=== PATIENT | male | born 1960 | race Caucasian/White ===

== ENCOUNTER 2018-03-29 09:12 | Inpatient (IN) ==
--- NOTE | 2018-03-29 09:24 | Emergency Department Report ---
Altered Mental Status HPI - General Chief Complaint: Altered Mental Status Stated Complaint: Confusion, falling, incontinence Time Seen by Provider: 03/29/18 09:22 Source: patient, family Mode of arrival: ambulatory Limitations: no limitations - History of Present Illness HPI narrative: Patient is a 57-year-old male presents emergency room for evaluation of confusion, falling. Patient in usual state of good health, last night was working on the computer about midnight, which is not uncommon for him. was woke up by a very large thump. Patient was had with fall and office chair in the computer room, unknown if he has had. Since that time patient's been having increasing confusion, patient has fallen 4 times since then. Patient becoming more confused and altered so brought patient to the ER for evaluation on arrival patient is tachycardic, appears to be agitated will answer questions appropriately, however does have some component of confusion. Review with the patient does have a history of seizures last seizure 8 years ago started on Keppra. Patient also has ADHD has been taking Adderall, did give a double dose this morning - Related Data Home Medications Medication Instructions Recorded Confirmed Cholecalciferol [Vit. D-3] 1,000 unit PO DAILY #30 tab 12/07/15 03/29/18 Previous Rx's Medication Instructions Recorded ondansetron HCl 4 mg tablet 4 mg PO Q4-6HPRN PRN #30 tab 12/20/17 trazodone 50 mg tablet 50 mg PO HS PRN #30 tab 01/14/18 Protonix (Pantoprazole)40 mg 40 mg PO QAM #30 tab 02/11/18 tablet,delayed release Actos (pioglitazone) 45 mg tablet 45 mg PO DAILY #90 tab 02/18/18 Glucophage (metformin) 1,000 mg 1,000 mg PO BID #60 tab 03/04/18 tablet Proscar (finasteride) 5 mg tablet 5 mg PO DAILY #30 tab 03/04/18 dapagliflozin 10 mg tablet 10 mg PO DAILY #30 tab 03/04/18 triazolam 0.25 mg tablet 0.25 mg PO HS PRN #30 tab 03/04/18 Xanax (alprazolam) 0.5 mg tablet 0.5 mg PO TID PRN #30 tab 03/06/18 dextroamphetamine-amphetamine 20 1 tab PO BID #60 tab 03/19/18 mg tablet Allergies Allergy/AdvReac Type Severity Reaction Status Date / Time citalopram [From Celexa] Allergy Intermediate Inability Verified 03/29/18 10:19 to ejaculate Review of Systems Constitutional: Denies: fever, chills, weakness Eyes: Denies: eye pain, eye discharge ENT: Denies: throat pain, dental pain Cardiovascular: Denies: chest pain, palpitations, dyspnea on exertion Respiratory: Denies: cough, dyspnea, wheezes Gastrointestinal: Denies: abdominal pain, nausea, vomiting Integumentary: Denies: alopecia, change in hair Neurological: Denies: headache, numbness Psychiatric: Reports: anxiety, other (agitation) Endocrine: Denies: fatigue [facility] Medical History Diabetes (Chronic Medical) Cataract (Chronic Medical) GERD (gastroesophageal reflux disease) (Chronic Medical) Generalized anxiety disorder (Chronic Medical) Follows with [facility] Sleep apnea (Chronic Medical ~2002) No CPAP - had lost 60 pounds since diagnosis Benign prostatic hyperplasia (Chronic Medical) BPH (benign prostatic hyperplasia) (Chronic Medical) Depression (Chronic Medical) Diabetes mellitus (Chronic Medical) Hypercholesteremia (Chronic Medical) Depression (Resolved Medical ~2000) Medical History Updates: ADHD. Seizure Surgical History: * Left cataract excision - 2014. * Colonoscopy - ~[address] Renny Vance. Reportedly normal. 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 Absent: tenderness - Chest Chest inspection: Present: normal inspection, symmetric chest wall rise. Absent : tenderness - Respiratory Respiratory exam: Present: normal lung sounds bilaterally. Absent: respiratory distress, wheezes, stridor - Cardiovascular Cardiovascular exam: Present: normal rhythm, tachycardia, normal heart sounds. Absent: regular rate - Abdominal Exam Abdominal exam: Present: soft, normal bowel sounds. Absent: distention, tenderness - Expanded Neurological Exam Patient oriented to: Present: person Cranial nerves: Normal: EOM function (II, III, IV, ), facial sensation (V), facial palsy (VII), gag reflex (IX), spinal accessory function (XI), tongue deviation (XII) Motor strength - LUE: 5/5 Motor strength - RUE: 5/5 Motor strength - LLE: 5/5 Motor strength - RLE: 5/5 Sensory exam upper extremity: Normal: light touch Sensory exam lower extremity: Normal: light touch DTR: 2+: biceps (L), biceps (R), patellar (L), patellar (R) Coma scale eye opening: spontaneous Coma scale motor response: obeys commands Coma scale verbal response: confused Coma scale total: 14 - Psychiatric Psychiatric exam: Present: agitated, anxious Altered Mental Status - Differential Diagnosis Likely: alcoholic intoxication, altered mental status, delirium, dementia, hypoglycemia, hyponatremia, subarachnoid hemorrhage, sepsis - Medical Records Attestation: I reviewed the patient's medical records. - Lab Data Attestation: I reviewed the patient's lab results. Result diagrams: 03/29/18 09:40 03/29/18 09:40 - Radiology Data Attestation: I reviewed the patient's radiology results. CT scan of head: No acute intracranial abnormality MRI brain without: Poor study, however no obvious stroke Disposition Clinical Impression: Altered mental status Qualifiers: Altered mental status type: delirium Qualified Code(s): R41.0 - Disorientation , unspecified Disposition: 02 To OBS [facility] [place] Condition: Stable Prescriptions: No Action Cholecalciferol [Vit. D-3] 1,000 unit PO DAILY #30 tab ondansetron HCl 4 mg tablet 4 mg PO Q4-6HPRN PRN #30 tab PRN Reason: nausea trazodone 50 mg tablet 50 mg PO HS PRN #30 tab PRN Reason: depression Protonix (Pantoprazole)40 mg tablet,delayed release 40 mg PO QAM #30 tab Proscar (finasteride) 5 mg tablet 5 mg PO DAILY #30 tab dapagliflozin 10 mg tablet 10 mg PO DAILY #30 tab dextroamphetamine-amphetamine 20 mg tablet 1 tab PO BID #60 tab Actos (pioglitazone) 45 mg tablet 45 mg PO DAILY #90 tab triazolam 0.25 mg tablet 0.25 mg PO HS PRN #30 tab PRN Reason: sleep Glucophage (metformin) 1,000 mg tablet 1,000 mg PO BID #60 tab Xanax (alprazolam) 0.5 mg tablet 0.5 mg PO TID PRN #30 tab PRN Reason: anxiety Time of Disposition: 12:59 - Seen By: physician
[2018-03-29] MEDS: SALINE FLUSH 10ml SYRINGE IVF PRN ×2 (09:40→19:35)
--- NOTE | 2018-03-29 09:44 | CT Scan Report ---
Indication: fall altered mental status confusion PROCEDURE: CT head/brain wo con: Encounter: Initial Comparison: None Technique: Axial CT images through the head were performed without contrast. Iterative Reconstruction dose reducing technique was utilized. FINDINGS: Left frontal scalp swelling. The ventricles are of normal size, shape, and configuration for the patient's age. There is no evidence of acute intracranial hemorrhage, midline displacement, or mass effect. There are scattered areas of low attenuation in the white matter which most likely represent changes of chronic microvascular ischemia. The CT attenuation of the brain parenchyma is otherwise normal within the cerebellum, brain stem, and cerebral hemispheres. The tympanic cavities and mastoid air cells are free of appreciable disease. There are no definite fractures of the skull base, calvarium, or visualized portion of the midface. IMPRESSION: No CT evidence of acute traumatic intracranial injury. .
[2018-03-29] MEDS ORDERED: NS 1,000 ML IV SCH (09:45)
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
[2018-03-29 13:43] VITALS: BMI 25.0
--- NOTE | 2018-03-29 13:46 | Magnetic Resonance Report ---
Indication: AMS, Neg Head CT R/O Stroke PROCEDURE: MR head/brain wo con: Encounter: Initial Comparisons: Head CT from today Technique: Multiplanar, multisequence, MR imaging of the head without contrast was acquired. FINDINGS: There is no evidence of acute diffusion restriction seen. The remaining sequences are essentially nondiagnostic due to severe motion artifact. No gross mass effect or midline shift. Ventricles are grossly normal in size. Impression: Very limited borderline nondiagnostic exam without evidence of acute stroke. .
[2018-03-29] MEDS ORDERED: ALPRAZolam 0.5 MG TABLET PO PRN (15:11)
[2018-03-29] MEDS: 1/2 NS 1,000 ML IV SCH (15:33)
[2018-03-29] MEDS ORDERED: ONDANSETRON 4 MG TABLET PO PRN (15:37)
[2018-03-29] MEDS ORDERED: METFORMIN 1,000 MG TABLET PO SCH (17:30)
[2018-03-29] MEDS ORDERED: HALOPERIDOL 5 MG/ML INJECTION IVP PRN (18:17)
[2018-03-29] MEDS: INSULIN ASPART 100unit/ml INJECTION SQ PRN ×3 (18:20→22:28)
[2018-03-29] MEDS ORDERED: HALOPERIDOL 5 MG/ML INJECTION IVP ONE ×2 (20:10→20:38)
[2018-03-29] MEDS ORDERED: OLANZapine INJ 10 MG VIAL IM ONE (22:37)
[2018-03-30] MEDS: DEXMEDETOMIDINE 200 MCG in NS 50 ML IV PRN ×4 (01:43→20:43)
[2018-03-30] MEDS: 1/2 NS 1,000 ML IV SCH ×6 (02:18→22:19)
[2018-03-30] MEDS ORDERED: HALOPERIDOL 5 MG/ML INJECTION IVP PRN (07:26)
[2018-03-30] MEDS: PANTOPRAZOLE 40 MG TABLET PO SCH (07:34)
[2018-03-30] MEDS ORDERED: PIOGLITAZONE 45 MG TABLET PO SCH (09:00)
[2018-03-30] MEDS: INSULIN ASPART 100unit/ml INJECTION SQ PRN (10:32)
[2018-03-30] MEDS: DAPAGLIFLOZIN 5 MG TABLET PO SCH (10:46)
[2018-03-30] MEDS: FINASTERIDE 5 MG TABLET PO SCH (10:46)
--- NOTE | 2018-03-30 10:48 | Progress Note ---
- Date 03/30/18 Subjective: Very combative overnight, fighting and trying to hit/bite staff. Started on precedex gtt and improved with that, resting now but awakens daily and immediately demands to go home. Has some apnea at times while sleeping, brief. Breathing coarse at times and coughing some. at bedside and discussed at length; no known new substances being used, concern this may be related to adderall. Persistently tachycardic but she states this is not abnormal for him. Sleep has been extremely disrupted lately; he will eat sugar to try not to go to sleep at night at times. Wants a solid psych plan before he leaves here but she is not sure he would agree to any inpatient help. Objective Vital signs: Temperature 96.9 F 03/30/18 08:15 Pulse Rate 106 H 03/30/18 10:15 Respiratory Rate 36 H 03/30/18 10:15 Blood Pressure 134/85 03/30/18 10:00 Pulse Oximetry 95 03/30/18 10:15 Rhythm: Sinus Tachycardia Height/Weight/BMI: Height 1.73 m Weight 73.7 kg Body Mass Index 25.0 - Constitutional Comments: resting, easily awakened and agitated - Routine HEENT Exam Head: Present: normocephalic ENT: Present: mucous membranes moist, oropharynx clear Comments: facial bruising noted - Routine Respiratory Exam Present: decreased breath sounds. Absent: rales, rhonchi - Routine Cardiovascular Exam Present: tachycardia. Absent: murmur - Routine Abdominal Exam Present: soft, non distended. Absent: guarding - Routine Extremities Exam Present: no edema, pulses intact - Routine Skin Exam Present: intact, dry, warm. Absent: rash - Routine Neurological Exam Present: altered mental status - Routine Lymphatic Exam Lymphatic: Absent: adenopathy - Routine Psychiatric Exam Present: unable to assess Results - Labs CBC & Chem 7: 03/30/18 04:10 03/30/18 04:15 Labs: K specimen hemolyzed. CPK 919 Mg 2.2 UDS + amphetamines, benzos (taken after ativan) - Impressions CT of the head without contrast as well as brain MRI reviewed with no acute findings; there is a fair amount of artifact on the MR imaging. Assessment and Plan Assessment and Plan: 03/30/18 Assessment Toxic Encephalopathy/ Mental status change evidenced by confusion likely caused by synthetic cannabinoid use +/- adderall and sleep deprivation Synthetic cannabinoid abuse Frequent falls - acute onset Sinus tachycardia - POA Anxiety/depression/ PTSD DM Type 2 (A1C 8% 02/03) Sleep apnea-does not use CPAP BPH Hypercholesterolemia History of seizure-2011 Chronic insomnia, acute worsening over the past month Plan Continue ICU care; remains critically ill and a danger to himself and staff Continue precedex gtt today for sedation; okay to remove restraints but may need again Continue telemetry and oximetry Check portable CXR to ensure no evidence of volume overload or infiltrate Change fluid to 1/2NS at 200 cc/hour for now given evidence of rhabdo Hold pioglitazone and metformin Haldol/ativan prn for combative behavior pending psych consult Hold adderall acutely as well as trazodone SSI for hyperglycemia for now in addition to farxiga per home medications and monitor blood sugars Await psych recommendations; may need to consider inpatient care given substance abuse + behavioral issues Repeat metabolic panel at 4 pm and full lab panel including CPK in AM for surveillance Discussed with bedside RN, patient's . Will continue ICU care today and sedation, restraints if needed. DVT Prophylaxis: SCD's GI Prophylaxis: Protonix Resuscitation Status: Full Code - Physician Narrative Narrative: Date: 03/30/18 Time: 1044 Hospital Course Summary Disclaimer: The visit summary below is not to be considered part of the above Progress Note. Hospital Course: 03/29/18 Admit, OBS to CCU for close observation. MRI, CT head performed in ED -neg. Labs in am to follow blood counts, electrolytes and renal function. Telemetry to monitor for arrhythmia. Continuous oximetry. Continue home meds except hold triazolam, Adderall and trazodone. Xanax PRN. If sxs aren't improving as would be expected if this were an OD, would consult Dr. Loco. Check BS, SSI today as he didn't have his DM meds this am. Will resume metformin at dinner and other DM meds tomorrow am. Consult psych for anxiety/depression/PTSD/substance abuse for recommendations on IP vs OP treatment on dismissal and medications. SCD's for VTE PPX Care to return to Dr. Contreras on DC. 03/30/18 Continue ICU care; remains critically ill and a danger to himself and staff Continue precedex gtt today for sedation; okay to remove restraints but may need again Continue telemetry and oximetry Check portable CXR to ensure no evidence of volume overload or infiltrate Change fluid to 1/2NS at 200 cc/hour for now given evidence of rhabdo Hold pioglitazone and metformin Haldol/ativan prn for combative behavior pending psych consult Hold adderall acutely as well as trazodone Await psych recommendations; may need to consider inpatient care given substance abuse + behavioral issues Repeat metabolic panel at 4 pm and full lab panel including CPK in AM for surveillance
[2018-03-31] MEDS: DEXMEDETOMIDINE 200 MCG in NS 50 ML IV PRN ×2 (02:11→07:21)
[2018-03-31] MEDS: 1/2 NS 1,000 ML IV SCH ×2 (03:27→17:05)
[2018-03-31] MEDS: PANTOPRAZOLE 40 MG TABLET PO SCH (06:25)
[2018-03-31] MEDS: DAPAGLIFLOZIN 5 MG TABLET PO SCH (08:56)
[2018-03-31] MEDS: FINASTERIDE 5 MG TABLET PO SCH (08:56)
[2018-03-31] MEDS: FLUTICASONE NASAL SPRAY 50mcg EA NOSTRIL SCH (08:57)
[2018-03-31] MEDS: LR 1,000 ML IV SCH ×2 (09:05→19:25)
--- NOTE | 2018-03-31 09:23 | XRay Report ---
Indication: hypoxia PROCEDURE: XR chest 1V: Encounter: Initial Comparison: None FINDINGS: The lungs are clear. There is no abnormal airspace opacity, pleural effusion or pneumothorax identified. The heart size, pulmonary vasculature and mediastinum are within normal limits. No significant skeletal abnormality is seen. IMPRESSION: No acute cardiopulmonary abnormality. .
--- NOTE | 2018-03-31 11:14 | Progress Note ---
- Date 03/31/18 Subjective: Awake and alert this morning, talking with his . Visited with the psychiatrist this morning, not felt to need inpatient psych care. Discussed this afternoon; initially he is very calm and requests to go home. His has multiple concerns about his discharge home today, particularly without f/u planned with psych. She is concerned he will be up all night smoking synthetic marijuana again; he goes back and forth on whether he plans to quit. When I recommend he stay here tonight so we can monitor his medical issues ( acidosis, elevated CPK, still weaning off of precedex, on IVF, etc.) he quickly becomes very angry and is cursing. He calms down when I suggest we can keep him in the ICU if behavioral issues arise. I contacted [facility] to determine if he can make arrangements for an intake appointment tomorrow and those arrangements will have to be made after 8 AM tomorrow. Objective Vital signs: Temperature 97.5 F 03/31/18 04:00 Pulse Rate 83 03/31/18 06:00 Respiratory Rate 24 03/31/18 06:00 Blood Pressure 125/71 03/31/18 06:00 Pulse Oximetry 99 03/31/18 06:00 Rhythm: Sinus Tachycardia - Constitutional Present: no acute distress - Routine HEENT Exam Head: Present: normocephalic, atraumatic Eye: Present: PERRL ENT: Present: mucous membranes moist, oropharynx clear - Routine Respiratory Exam Present: CTA bilaterally. Absent: rales, wheezes - Routine Cardiovascular Exam Present: no murmur, tachycardia - Routine Abdominal Exam Present: soft, non distended, non tender - Routine Extremities Exam Present: no edema - Routine Musculoskeletal Exam Musculoskeletal: Present: no tenderness, no erythema - Routine Skin Exam Present: dry, warm. Absent: rash - Routine Neurological Exam Present: alert, normal speech - Routine Psychiatric Exam Comments: labile moods, becomes agitated easily Results - Labs CBC & Chem 7: 03/31/18 04:28 03/31/18 04:28 - Impressions Date of Exam: 03/30/18 Ordering Provider: Marivel Hutson Type of Exam(s): XR chest 1V Reason for Exam(s): hypoxia Indication: hypoxia PROCEDURE: XR chest 1V: Encounter: Initial Comparison: None FINDINGS: The lungs are clear. There is no abnormal airspace opacity, pleural effusion or pneumothorax identified. The heart size, pulmonary vasculature and mediastinum are within normal limits. No significant skeletal abnormality is seen. IMPRESSION: No acute cardiopulmonary abnormality. Assessment and Plan Assessment and Plan: 03/30/18 Assessment Toxic Encephalopathy/ Mental status change evidenced by confusion likely caused by synthetic cannabinoid use +/- adderall and sleep deprivation Synthetic cannabinoid abuse Frequent falls - acute onset Sinus tachycardia - POA Anxiety/depression/ PTSD DM Type 2 (A1C 8% 02/03) Sleep apnea-does not use CPAP BPH Hypercholesterolemia History of seizure-2011 Chronic insomnia, acute worsening over the past month Mild rhabdomyolysis; CPK >900, now 736 Metabolic acidosis secondary to saline administration Plan Continue inpatient care today; will transfer out to the floor this afternoon however. Contact [facility] in the morning for appointments to be arranged; tentatively plan to DC tomorrow if medically stable Change IVF to LR @ 100 ml/hour due to acidosis with persistently elevated CPK ( 736 today) Wean off of precedex today prior to transfer Continue telemetry while on the medical floor tonight Holding pioglitazone and metformin Haldol/ativan prn for combative behavior should it recur tonight Hold adderall acutely Resume home trazodone dosing for sleep SSI for hyperglycemia for now in addition to farxiga per home medications and monitor blood sugars Repeat renal panel, Mg, CBC, CPK in AM for surveillance Discussed with bedside RN, patient's . DVT Prophylaxis: SCD's Resuscitation Status: Full Code - Physician Narrative Narrative: Date: 03/31/18 Time: 1112 Hospital Course Summary Disclaimer: The visit summary below is not to be considered part of the above Progress Note. Hospital Course: 03/29/18 Admit, OBS to CCU for close observation. MRI, CT head performed in ED -neg. Labs in am to follow blood counts, electrolytes and renal function. Telemetry to monitor for arrhythmia. Continuous oximetry. Continue home meds except hold triazolam, Adderall and trazodone. Xanax PRN. If sxs aren't improving as would be expected if this were an OD, would consult Dr. Loco. Check BS, SSI today as he didn't have his DM meds this am. Will resume metformin at dinner and other DM meds tomorrow am. Consult psych for anxiety/depression/PTSD/substance abuse for recommendations on IP vs OP treatment on dismissal and medications. SCD's for VTE PPX Care to return to Dr. Contreras on DC. 03/30/18 Continue ICU care; remains critically ill and a danger to himself and staff Continue precedex gtt today for sedation; okay to remove restraints but may need again Continue telemetry and oximetry Check portable CXR to ensure no evidence of volume overload or infiltrate Change fluid to 1/2NS at 200 cc/hour for now given evidence of rhabdo Hold pioglitazone and metformin Haldol/ativan prn for combative behavior pending psych consult Hold adderall acutely as well as trazodone Await psych recommendations; may need to consider inpatient care given substance abuse + behavioral issues Repeat metabolic panel at 4 pm and full lab panel including CPK in AM for surveillance 03/31/18 Continue inpatient care today; will transfer out to the floor this afternoon however. Contact [place] in the morning for appointments to be arranged; tentatively plan to DC tomorrow if medically stable Change IVF to LR @ 100 ml/hour due to acidosis with persistently elevated CPK ( 736 today) Wean off of precedex today prior to transfer Continue telemetry while on the medical floor tonight Holding pioglitazone and metformin Haldol/ativan prn for combative behavior should it recur tonight Hold adderall acutely Resume home trazodone dosing for sleep SSI for hyperglycemia for now in addition to farxiga per home medications and monitor blood sugars Repeat renal panel, Mg, CBC, CPK in AM for surveillance
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
[2018-03-31] MEDS ORDERED: TRAZODONE 50 MG TABLET PO PRN (16:30)
[2018-03-31] MEDS ORDERED: ZOLPIDEM 5 MG TABLET PO PRN (23:24)
[2018-04-01] MEDS: LR 1,000 ML IV SCH ×7 (05:45→22:49)
[2018-04-01] MEDS: PANTOPRAZOLE 40 MG TABLET PO SCH (07:04)
[2018-04-01] MEDS: FLUTICASONE NASAL SPRAY 50mcg EA NOSTRIL SCH ×2 (09:58→10:02)
[2018-04-01] MEDS: FINASTERIDE 5 MG TABLET PO SCH (09:58)
[2018-04-01] MEDS: DAPAGLIFLOZIN 5 MG TABLET PO SCH (09:58)
--- NOTE | 2018-04-01 12:02 | Progress Note ---
- Date 04/01/18 Subjective: Pj is seen this morning in follow-up. He is up on the side of the bed, alert , oriented and pleasant. He states that he is feeling good. He does request if he can be discharged today. We did talk about his ongoing tachycardia, currently in the 120s. He denies having symptoms, dizziness, chest pain or shortness of breath. Nurse instructed report, patient had difficulty with sleeping overnight and became very agitated with nursing staff requesting sedatives for sleep. Objective Vital signs: Temperature 98 F 04/01/18 09:07 Pulse Rate 122 H 04/01/18 09:07 Respiratory Rate 16 04/01/18 09:07 Blood Pressure 138/69 04/01/18 09:07 Pulse Oximetry 98 04/01/18 09:07 Rhythm: Sinus Tachycardia Height/Weight/BMI: Weight 67.6 kg - Constitutional Present: no acute distress, well nourished, well developed - Routine HEENT Exam Eye: Present: EOMI ENT: Present: mucous membranes moist, dentition normal - Routine Respiratory Exam Present: CTA bilaterally. Absent: wheezes - Routine Cardiovascular Exam Present: RRR, S1, S2. Absent: murmur - Routine Abdominal Exam Present: soft, normoactive bowel sounds, non distended. Absent: tenderness - Routine Extremities Exam Present: full ROM, normal capillary refill - Routine Back/Spine/Pelvis Exam Back/Spine: Present: full ROM - Routine Skin Exam Present: intact, dry, warm - Routine Neurological Exam Present: alert, oriented X3, CN II-XII intact, moving all extremities - Routine Lymphatic Exam Lymphatic: Absent: adenopathy - Routine Psychiatric Exam Present: normal affect, cooperative Results - Labs CBC & Chem 7: 04/01/18 04:07 04/01/18 04:07 Assessment and Plan Assessment and Plan: 03/30/18 Assessment Toxic Encephalopathy/ Mental status change evidenced by confusion likely caused by synthetic cannabinoid use +/- adderall and sleep deprivation Synthetic cannabinoid abuse Frequent falls - acute onset Sinus tachycardia - POA Anxiety/depression/ PTSD DM Type 2 (A1C 8% 02/03) Sleep apnea-does not use CPAP BPH Hypercholesterolemia History of seizure-2011 Chronic insomnia, acute worsening over the past month Mild rhabdomyolysis; CPK >900, now 736 Metabolic acidosis secondary to saline administration Plan Will continue to give LR fluids in light of acidosis. Patient started on oral sodium bicarbonate as he can continue this in the outpatient setting. He remains tachycardic, suspect this is multifactorial. Patient is currently having discussion with his and she states that they are . Patient was given oral beta karli today at 10am, will see if this helps tachycardia. Patient verbalizes wish to be discharged today Speaking with CM regarding outpatient Psychiatric apt at [facility] Case discussed with attending, Dr. Goldman 04/01/2018-5:30 PM-I examined the patient independently. I reviewed this chart, the patient history, and the FURNACE FEEDER's/PA's documented findings as above. We discussed and formulated the assessment and plan as above with the additions below.-Dr. Goldman Patient was seen late this afternoon in his room accompanied by his . He states he is feeling better. He is eating and drinking okay. He continues on IV fluids. He continues to have tachycardia despite beta karli. He complains of chronic anxiety and insomnia. He has developed worsening metabolic acidosis. The patient states that he and his have discussed a trial separation for 6 months. His is currently present. He appears calm. He denies feeling suicidal at this time. He denies feeling suicidal in the past. On exam he is alert and oriented and in no acute distress. Neck is supple. Thyroid feels normal in size without nodules. Chest is clear to auscultation. Cardiovascular reveals a tachycardic rate with irregular rhythm. Telemetry shows sinus tachycardia with a heart rate in the 110's. Abdomen is soft and nontender. Extremities are free of edema. Lab was reviewed. TSH is low at 0.27. Free T4 is pending. Impression and plan Encephalopathy-resolved Sinus Tachycardia-continue twice a day metoprolol 25 mg Low TSH-free T4 is pending [id number] with psychiatry and they recommend no change in medications at this time. Will add Benadryl for difficulty with sleep Mild Rhabdomyolysis is improving. Probable dismissal tomorrow - Physician Narrative Physician: Arpita Goldman MD Narrative: Date: 04/01/18 Time: 1155 Hospital Course Summary Disclaimer: The visit summary below is not to be considered part of the above Progress Note. Hospital Course: 03/29/18 Admit, OBS to CCU for close observation. MRI, CT head performed in ED -neg. Labs in am to follow blood counts, electrolytes and renal function. Telemetry to monitor for arrhythmia. Continuous oximetry. Continue home meds except hold triazolam, Adderall and trazodone. Xanax PRN. If sxs aren't improving as would be expected if this were an OD, would consult Dr. Loco. Check BS, SSI today as he didn't have his DM meds this am. Will resume metformin at dinner and other DM meds tomorrow am. Consult psych for anxiety/depression/PTSD/substance abuse for recommendations on IP vs OP treatment on dismissal and medications. SCD's for VTE PPX Care to return to Dr. Contreras on DC. 03/30/18 Continue ICU care; remains critically ill and a danger to himself and staff Continue precedex gtt today for sedation; okay to remove restraints but may need again Continue telemetry and oximetry Check portable CXR to ensure no evidence of volume overload or infiltrate Change fluid to 1/2NS at 200 cc/hour for now given evidence of rhabdo Hold pioglitazone and metformin Haldol/ativan prn for combative behavior pending psych consult Hold adderall acutely as well as trazodone Await psych recommendations; may need to consider inpatient care given substance abuse + behavioral issues Repeat metabolic panel at 4 pm and full lab panel including CPK in AM for surveillance 03/31/18 Continue inpatient care today; will transfer out to the floor this afternoon however. Contact [facility] in the morning for appointments to be arranged; tentatively plan to DC tomorrow if medically stable Change IVF to LR @ 100 ml/hour due to acidosis with persistently elevated CPK ( 736 today) Wean off of precedex today prior to transfer Continue telemetry while on the medical floor tonight Holding pioglitazone and metformin Haldol/ativan prn for combative behavior should it recur tonight Hold adderall acutely Resume home trazodone dosing for sleep SSI for hyperglycemia for now in addition to farxiga per home medications and monitor blood sugars Repeat renal panel, Mg, CBC, CPK in AM for surveillance 04/01/18 Will continue to give LR fluids in light of acidosis. Patient started on oral sodium bicarbonate as he can continue this in the outpatient setting. He remains tachycardic, suspect this is multifactorial. Patient is currently having discussion with his and she states that they are . Patient was given oral beta karli today at 10am, will see if this helps tachycardia. Patient verbalizes wish to be discharged today Speaking with CM regarding outpatient Psychiatric apt at [facility] Case discussed with attending, Dr. Goldman
[2018-04-01] MEDS: SODIUM BICARBONATE 650 MG TABLET PO SCH ×2 (15:40→20:08)
[2018-04-01] MEDS: INSULIN ASPART 100unit/ml INJECTION SQ PRN (16:36)
[2018-04-01] MEDS ORDERED: DiphenhydrAMINE 25 MG CAPSULE PO PRN (20:02)
[2018-04-02] MEDS: LR 1,000 ML IV SCH ×2 (02:36→06:18)
[2018-04-02] MEDS: PANTOPRAZOLE 40 MG TABLET PO SCH (05:54)
[2018-04-02 08:32] VITALS: BP 130/74; PULSE 107; RESP 20; TEMP 97.4; O2SAT 99
[2018-04-02] MEDS: DAPAGLIFLOZIN 5 MG TABLET PO SCH (09:32)
[2018-04-02] MEDS: FINASTERIDE 5 MG TABLET PO SCH (09:32)
[2018-04-02] MEDS: FLUTICASONE NASAL SPRAY 50mcg EA NOSTRIL SCH ×2 (09:32→09:41)
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
[2018-04-02] MEDS: SODIUM BICARBONATE 650 MG TABLET PO SCH (09:41)
[2018-04-02] MEDS: INSULIN ASPART 100unit/ml INJECTION SQ PRN (11:26)
== END 2018-04-02 14:15 | disposition home or self-care (01) | DRG 92 ==
LOC: CCU 09:12 → ED 09:12 → CCU 12:55 → SUATTDRO 03-30 13:55 → SRG 03-31 16:50
PROVIDERS: ADMIT Hospitalist; ATTEND Internal Medicine

== ENCOUNTER 2018-05-01 11:45 | Observation (INO) ==
--- NOTE | 2018-05-01 12:06 | Emergency Department Report ---
Overdose HPI - General Chief Complaint: Overdose <Barby Barnett - 05/01/18 12:06> Stated Complaint: OVERDOSE <Barby Barnett - 05/01/18 12:06> Time Seen by Provider: 05/01/18 12:06 <Barby Barnett - 05/01/18 15:41> Source: patient, EMS <Barby Barnett - 05/01/18 12:06> Mode of arrival: ambulatory <Barby Barnett - 05/01/18 13:25> Limitations: no limitations <Barby Barnett - 05/01/18 13:25> - History of Present Illness HPI Narrative: 58-year-old male brought to ER via EMS for overdose of Ambien. Patient states that he was unable to sleep after 20 mg of Ambien yesterday evening so took an additional 10 mg. Says he is frequently take 20 mg and didn' t take an additional 10 would make any difference. 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 Patient's ask neighbors to check in on him. Neighbor stent check on patient about 945 this morning and found patient sitting in chair and was somewhat slow to respond. They rechecked patient again and he was about the same condition. At approximately 11:00 they went back and found patient lying on the kitchen floor. Patient had struck right forehead and initially was not oriented. Patient does remember falling. Patient was given 2 mg of flumazenil IV by EMS and became much more responsive after that. Patient has a hoarse voice and says that it just started today. Admits chronic pain from diabetic neuropathy. Denies fever, chills, SOA, CP, nausea, vomiting, abdominal pain, diarrhea, headache. Patient denies use of any other substances for over one month (has hx. of K2 usage). <Barby Barnett - 05/01/18 15:41> - Related Data Home Medications Medication Instructions Recorded Confirmed Cholecalciferol (Vitamin D3) 1,000 unit PO DAILY 05/01/18 05/01/18 [Vitamin D3] Dapagliflozin Propanediol [Farxiga] 10 mg PO DAILY 05/01/18 05/01/18 Dextroamphetamine/Amphetamine 20 mg PO BID 05/01/18 05/01/18 [Adderall 20 mg Tablet] Finasteride [Proscar] 5 mg PO DAILY 05/01/18 05/01/18 Metformin [Glucophage] 1,000 mg PO BIDWM 05/01/18 05/01/18 Pantoprazole Sodium [Protonix] 40 mg PO QAM 05/01/18 05/01/18 Pioglitazone HCl [Actos] 45 mg PO DAILY 05/01/18 05/01/18 Zolpidem Tartrate [Ambien] 10 mg PO HS 05/01/18 05/01/18 <Barby Barnett - 05/01/18 12:06> Allergies Allergy/AdvReac Type Severity Reaction Status Date / Time citalopram [From Celexa] Allergy Intermediate Inability Verified 05/01/18 12:03 to ejaculate <Barby Barnett - 05/01/18 12:06> Review of Systems All systems: reviewed and negative except as stated <Barby Barnett - 12:19> Neurological: Reports: other (diabethic ) <Barby Barnett - 05/01/18 12:19> [facility] Patient Stated Medical History Seizures Yes: stopped seizure med 5 yrs ago Cataracts Yes Sleep Apnea Yes Diabetes Mellitus Type 2 Yes Gastroesophageal Reflux Yes Disease Depression Yes Substance Use Disorder Yes: MARIJUANA, [facility] Medical History Diabetes (Chronic Medical) Cataract (Chronic Medical) GERD (gastroesophageal reflux disease) (Chronic Medical) Generalized anxiety disorder (Chronic Medical) Follows with [facility] Sleep apnea (Chronic Medical ~2002) No CPAP - had lost 60 pounds since diagnosis Benign prostatic hyperplasia (Chronic Medical) BPH (benign prostatic hyperplasia) (Chronic Medical) Depression (Chronic Medical) Diabetes mellitus (Chronic Medical) Hypercholesteremia (Chronic Medical) Depression (Resolved Medical ~2000) <Lan Siegel M - 05/01/18 16:04> Patient Stated Medical History Seizures Yes: stopped seizure med 5 yrs ago Cataracts Yes Sleep Apnea Yes Diabetes Mellitus Type 2 Yes Gastroesophageal Reflux Yes Disease Depression Yes Substance Use Disorder Yes: marijuana 2x wk. last 03/27/18 Clinic Medical History Diabetes (Chronic Medical) Cataract (Chronic Medical) GERD (gastroesophageal reflux disease) (Chronic Medical) Generalized anxiety disorder (Chronic Medical) Follows with [facility] Sleep apnea (Chronic Medical ~2002) No CPAP - had lost 60 pounds since diagnosis Benign prostatic hyperplasia (Chronic Medical) BPH (benign prostatic hyperplasia) (Chronic Medical) Depression (Chronic Medical) Diabetes mellitus (Chronic Medical) Hypercholesteremia (Chronic Medical) Depression (Resolved Medical ~2000) <Barby Barnett 05/01/18 15:35> Medical History Updates: ADHD. Seizure <Barby Barnett 05/01/18 15:35> Surgical History: * Left cataract excision - 2014. * Colonoscopy/EGD - ~[address] Renny Vance. Reportedly normal. * Circumcision - 20 years ago <Barby Barnett 05/01/18 12:06> Family History: Family History Unknown Diabetes High blood pressure <MarchLan - 05/01/18 16:04> Family History Unknown Diabetes High blood pressure <Barby Barnett 05/01/18 12:06> - Social History Smoking status: Former smoker <Barby Barnett 05/01/18 12:06> Substance use type: marijuana <Barby Barnett 05/01/18 12:06> Alcohol intake: former <Barby Barnett 05/01/18 12:06> Alcohol intake frequency: does not drink <Barby Barnett 05/01/18 12:06> Housing: house <Barby Barnett 05/01/18 12:06> Household members: spouse <Barby Barnett 05/01/18 12:06> Current occupational status: employed <Barby Barnett 05/01/18 12:06> 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 <Barby Barnett 05/01/18 12:06> Physical Exam - Limitations Limitations: no limitations <Barby Barnett 05/01/18 12:22> - General General appearance: alert, in no apparent distress <Barby Barnett 12:22> - Normal Exams: Eyes:: Pupils are PERRLA w/ EOMI <Barby Barnett 05/01/18 12:22> Neck:: Full range of motion, without adenopathy, JVD <Barby Barnett 05/01 12:22> Chest/Respirations:: Clear all ryan, with good airflow, and symmetry bilaterally <Barby Barnett 05/01/18 12:22> Abdomen:: Bowel sounds positive, soft, non-tender, non-distended <Barby Barnett 05/01/18 12:22> Musculoskeletal:: good range of motion, all extremities <Barby Barnett 12:22> Neurological:: Patient is alert <Barby Barnett 05/01/18 12:22> - Expanded Head Exam Head exam physical: Present: abrasion (to left forehead), other (abrasion over nose) <Baryb Barnett 05/01/18 19:08> - Eye Eye exam: Present: other (ecchymosis and mild swelling to right up eyelid). Absent: nystagmus <Barby Barnett 05/01/18 19:08> - Cardiovascular Cardiovascular exam: Present: normal rhythm (106 bpm) <Barby Barnett 12:22> - Back Exam Back exam: Present: normal inspection, full ROM. Absent: tenderness, muscle spasm <Barby Barnett 05/01/18 12:22> - Expanded Neurological Exam Patient oriented to: Present: person, place, time <Barby Barnett 12:22> Speech: Present: fluid speech <Barby Barnett 05/01/18 12:22> Motor strength - LUE: 5/5 <Barby Barnett 05/01/18 12:22> Motor strength - RUE: 5/5 <Barby Barnett 05/01/18 12:22> Motor strength - LLE: 5/5 <Barby Barnett 05/01/18 12:22> Motor strength - RLE: 5/5 <Barby Barnett 05/01/18 12:22> DTR: 2+: triceps (L), triceps (R), patellar (L), patellar (R) <Barby Barnett 05/01/18 12:22> Course - Consultations Consultation #1: I discussed patient's HPI, past medical history, vital signs, labs, CT scan and exam findings with Dr. Dupont. Dr. Dupont will admit OBS. <Barby Barnett 05/01/18 19:08> Vital Signs Temperature 97.5 F 05/01/18 11:45 Pulse Rate 112 H 05/01/18 11:45 Respiratory Rate 20 05/01/18 11:45 Blood Pressure 121/77 05/01/18 11:45 Pulse Oximetry 95 05/01/18 11:45 Temperature 97.5 F 05/01/18 11:45 Pulse Rate 114 H 05/01/18 11:47 Respiratory Rate 20 05/01/18 11:45 Blood Pressure 121/77 05/01/18 11:45 Pulse Oximetry 95 05/01/18 11:45 <Lan Siegel - 05/01/18 16:05> Overdose - MDM Narrative Medical decision making narrative: Patient more alert after fluids. <Barby Barnett - 05/01/18 15:41> - Differential Diagnosis Likely: poisoning by opiate or related narcotic, drug overdose, accidental drug ingestion (, dehydration, Sudural hematoma) <Barby Barnett - 05/01/18 19:08 > - Medical Records Attestation: I reviewed the patient's medical records. <Barby Barnett - 12:22> - Lab Data Attestation: I reviewed the patient's lab results. <Barby Barnett - 12:22> Result diagrams: 05/01/18 11:32 05/01/18 11:32 <Barby Barnett - 05/01/18 12:06> Lab Results 05/01/18 05/01/18 05/01/18 Range/Units 11:32 11:32 13:03 WBC 9.9 (4.5-11.0) T/MM3 RBC 4.63 (4.50-5.90) M/MM3 Hgb 14.1 (13.5-17.5) GM/DL Hct 42.5 (41-53) % MCV 91.8 (80-100) UM3 MCH 30.5 (26-34) UUG MCHC 33.2 (31-37) GM/DL RDW Std Deviation 48.6 (36.9-50.2) FL Plt Count 257 D (130-400) T/MM3 MPV 9.9 (9.4-12.4) UM3 Immature Gran % (Auto) 0.8 H (0.0-0.5) % Neut % (Auto) 64.9 (33-66) % Lymph % (Auto) 23.1 (23-45) % [place] % (Auto) 8.9 (0-9.0) % Eos % (Auto) 2.1 (0-4) % Baso % (Auto) 0.2 (0-2) % Neut # (Auto) 6.4 (1.8-7.7) T/MM3 Lymph # (Auto) 2.3 (1-4.8) T/MM3 [place] # (Auto) 0.9 H (0-0.8) T/MM3 Eos # (Auto) 0.2 (0-0.5) T/MM3 Baso # (Auto) 0.0 (0-0.2) T/MM3 Abs Immat Gran (auto) 0.08 H (0.00-0.03) T/MM3 Turbidity < 20 (0-20) Sodium 144 (136-146) MEQ/L Potassium 4.3 (3.6-5) MEQ/L Chloride 101 (98-107) MEQ/L Carbon Dioxide 28 (22-30) MEQ/L Anion Gap 15 (5-15) meq/L BUN 15.0 (9-20) MG/DL Creatinine 0.7 L (0.8-1.5) mg/dL GFR Calculation 115 BUN/Creatinine Ratio 21 (6-26) RATIO Glucose 159 H (75-110) MG/DL Glucometer (65-110) mg/dL Calculated Osmolality 281 H (261-280) MOSM/KG Calcium 9.8 (8.4-10.2) MG/DL Total Bilirubin 0.70 (0.20-1.30) MG/DL Icterus Index < 2 (0-7) AST 27 (17-59) U/L ALT 23 (1-50) U/L Alkaline Phosphatase 92 (38-126) U/L Total Protein 7.9 (6.3-8.2) g/dL Albumin 4.7 (3.5-5.0) g/dL Globulin 3.2 (2.4-3.6) G/DL Albumin/Globulin Ratio 1.5 (1.1-2.2) RATIO Specimen Hemolysis 18 (0-25) Ur Collection Type Urine, void-cc/notcc Urine Color Yellow (YELLOW) Urine Clarity Clear Urine pH 6.0 (5.0-8.0) Ur Specific [place] <=1.005 L (1.015-1.025) Urine Protein Negative (NEGATIVE) Urine Glucose (UA) 3+ A (NEGATIVE) Urine Ketones 1+ A (NEGATIVE) Urine Occult Blood Negative (NEGATIVE) Urine Nitrate Negative (NEGATIVE) Urine Bilirubin Negative (NEGATIVE) Urine Urobilinogen 0.2 (NORMAL) EU/DL Ur Leukocyte Esterase Negative (NEGATIVE) Urinalysis Comment Microscopic not ind. Urine Opiates Screen ng/mL Ur Oxycodone Screen ng/mL Urine Methadone Screen ng/mL Ur Propoxyphene Screen ng/mL Ur Barbiturates Screen ng/mL U Tricyclic Antidepress ng/mL Ur Phencyclidine Scrn ng/mL Ur Amphetamines Screen ng/mL U Methamphetamines Scrn ng/mL U Benzodiazepines Scrn ng/mL Urine Cocaine Screen ng/mL U Cannabinoids Screen ng/mL Ur Drug Screen Confirm Alcohol, Quantitative <10 (<10) mg/dL 05/01/18 05/01/18 05/01/18 Range/Units 13:03 13:03 14:44 WBC (4.5-11.0) T/MM3 RBC (4.50-5.90) M/MM3 Hgb (13.5-17.5) GM/DL Hct (41-53) % MCV (80-100) UM3 MCH (26-34) UUG MCHC (31-37) GM/DL RDW Std Deviation (36.9-50.2) FL Plt Count (130-400) T/MM3 MPV (9.4-12.4) UM3 Immature Gran % (Auto) (0.0-0.5) % Neut % (Auto) (33-66) % Lymph % (Auto) (23-45) % [place] % (Auto) (0-9.0) % Eos % (Auto) (0-4) % Baso % (Auto) (0-2) % Neut # (Auto) (1.8-7.7) T/MM3 Lymph # (Auto) (1-4.8) T/MM3 [place] # (Auto) (0-0.8) T/MM3 Eos # (Auto) (0-0.5) T/MM3 Baso # (Auto) (0-0.2) T/MM3 Abs Immat Gran (auto) (0.00-0.03) T/MM3 Turbidity (0-20) Sodium (136-146) MEQ/L Potassium (3.6-5) MEQ/L Chloride (98-107) MEQ/L Carbon Dioxide (22-30) MEQ/L Anion Gap (5-15) meq/L BUN (9-20) MG/DL Creatinine (0.8-1.5) mg/dL GFR Calculation BUN/Creatinine Ratio (6-26) RATIO Glucose (75-110) MG/DL Glucometer 216 (65-110) mg/dL Calculated Osmolality (261-280) MOSM/KG Calcium (8.4-10.2) MG/DL Total Bilirubin (0.20-1.30) MG/DL Icterus Index (0-7) AST (17-59) U/L ALT (1-50) U/L Alkaline Phosphatase (38-126) U/L Total Protein (6.3-8.2) g/dL Albumin (3.5-5.0) g/dL Globulin (2.4-3.6) G/DL Albumin/Globulin Ratio (1.1-2.2) RATIO Specimen Hemolysis (0-25) Ur Collection Type Urine Color (YELLOW) Urine Clarity Urine pH (5.0-8.0) Ur Specific [place] (1.015-1.025) Urine Protein (NEGATIVE) Urine Glucose (UA) (NEGATIVE) Urine Ketones (NEGATIVE) Urine Occult Blood (NEGATIVE) Urine Nitrate (NEGATIVE) Urine Bilirubin (NEGATIVE) Urine Urobilinogen (NORMAL) EU/DL Ur Leukocyte Esterase (NEGATIVE) Urinalysis Comment Urine Opiates Screen Negative ng/mL Ur Oxycodone Screen Negative ng/mL Urine Methadone Screen Negative ng/mL Ur Propoxyphene Screen Negative ng/mL Ur Barbiturates Screen Negative ng/mL U Tricyclic Antidepress Negative ng/mL Ur Phencyclidine Scrn Negative ng/mL Ur Amphetamines Screen Positive ng/mL U Methamphetamines Scrn Negative ng/mL U Benzodiazepines Scrn Positive ng/mL Urine Cocaine Screen Negative ng/mL U Cannabinoids Screen Negative ng/mL Ur Drug Screen Confirm Sent out Alcohol, Quantitative (<10) mg/dL <Lan Siegel - 05/01/18 16:05> - Radiology Data Attestation: I reviewed the patient's radiology results. <Barby Barnett - 05/01/18 12:22> CT: no acute intracranial findings (Dr. Vacne) <Barby Barnett 05/01/18 19:08> - EKG Data EKG #1 EKG attestation: Yes: I reviewed and interpreted this EKG. <MarchLan 16:05> EKG shows normal: sinus rhythm, axis, intervals, QRS complexes, ST-T waves < eb 05/01/18 16:05> Rate: tachycardia <eb 05/01/18 16:05> Disposition Clinical Impression: Encephalopathy Overdose Qualifiers: Encounter type: initial encounter Injury intent: accidental or unintentional Qualified Code(s): T50.901A - Poisoning by unspecified drugs, medicaments and biological substances, accidental (unintentional), initial encounter <Barby Barnett 05/01/18 19:08> Disposition: 02 To [facility] <Barby Barnett 05/01/18 19:08> Instructions: <Barby Barnett 05/01/18 12:06> Prescriptions: No Action Zolpidem Tartrate [Ambien] 10 mg PO HS Metformin [Glucophage] 1,000 mg PO BIDWM Finasteride [Proscar] 5 mg PO DAILY Pioglitazone HCl [Actos] 45 mg PO DAILY Pantoprazole Sodium [Protonix] 40 mg PO QAM Cholecalciferol (Vitamin D3) [Vitamin D3] 1,000 unit PO DAILY Dextroamphetamine/Amphetamine [Adderall 20 mg Tablet] 20 mg PO BID Dapagliflozin Propanediol [Farxiga] 10 mg PO DAILY <Barby Barnett 12:06> Referrals: Michael Contreras MD [Primary Care Provider] - <Barby Barnett - 05/01/18 12:06> Forms: <Barby Barnett 05/01/18 12:06> - Seen By: midlevel <Barby Barnett 05/01/18 19:08>
[2018-05-01] MEDS ORDERED: SALINE FLUSH 10ml SYRINGE IVF PRN (12:16)
[2018-05-01] MEDS ORDERED: NS 1,000 ML IV ONE (12:16)
--- NOTE | 2018-05-01 16:04 | CT Scan Report ---
Indication: passed out, overdose, hit left side of head PROCEDURE: CT head/brain wo con: Encounter: Initial Comparison: March 29, 2018 Technique: Axial CT images through the head were performed without contrast. Iterative Reconstruction dose reducing technique was utilized. FINDINGS: The ventricles are of normal size, shape, and configuration for the patient's age. There is no evidence of acute intracranial hemorrhage, midline displacement, or mass effect. There are scattered areas of low attenuation in the white matter which most likely represent changes of chronic microvascular ischemia. The CT attenuation of the brain parenchyma is otherwise normal within the cerebellum, brain stem, and cerebral hemispheres. The tympanic cavities and mastoid air cells are free of appreciable disease. There are no definite fractures of the skull base, calvarium, or visualized portion of the midface. Mild left frontal scalp swelling. IMPRESSION: No CT evidence of acute traumatic intracranial injury. .
[2018-05-01 17:31] VITALS: BMI 21.7
[2018-05-01] MEDS: 1/2 NS 1,000 ML IV SCH (17:49)
--- NOTE | 2018-05-01 18:51 | History & Physical Report ---
History of Present Illness Date: 05/01/18 Chief complaint: Overdose HPI: Mr Hansen is a 58 y/o male who presents to [facility] via EMS secondary to suspected overdose and encephalopathy. He reports he was not able to sleep last night despite 20mg of Ambien - took and extra 10mg to help sleep. Will take 20mg Ambien to help sleep, so he did not think too much about taking the extra 10mg. His call to check on him this morning. Apparently he was more slow to respond so she had neighbors come check on him. When they checked at about 0945, he was sitting on chair and slow to respond. Recheck later and he was about the same. When they checked at around 1100, he was laying on floor. EMS activated. Given 2mg IV flumazenil and became more alert. Recently hospitalized at [facility] from 03/29/18 until 04/02/18 secondary to Toxic Encephalopathy thought to be secondary to synthetic cannabinoid use and sleep deprivation. Was discharged on Metoprolol 25mg BIDWM (which patient reports to me he did not start as leery of the medication) and Trazodone, Adderall, Triazolam and Xanax stopped. Was seen in clinic on 04/09 and having difficulty sleeping - OTC Melatonin started but not effective. Called to clinic 04/16 expressing sleep problems wanting to go back on Xanax, Adderall, and triazolam as prior to his admission. PCP not available and staff did attempt to contact psychiatry; patient reported he canceled his psych appointment as he did not feel it would help him. Patient did start taking Ambien that he had prior to admission (not listed on Med Rec at admission or with PCP's prior visits). When seen in clinic 04/22/18, reports having restarted Adderall (as he could not concentrate or function); was given refill Ambien at that time. Denies any synthetic cannabinol use (or other drugs/ ETOH) since discharge. Evaluated in ED. Lab unremarkable. CT head negative for acute bleed. With continued somnolence and encephalopathy, patient placed in OBS for further evaluation. Review of Systems ROS unobtainable: due to mental status Past Medical History Medical History: Medical History Diabetes (Chronic) Cataract (Chronic) GERD (gastroesophageal reflux disease) (Chronic) Generalized anxiety disorder (Chronic) Follows with [facility] Sleep apnea (Chronic) Onset Date: ~2002 No CPAP - had lost 60 pounds since diagnosis Benign prostatic hyperplasia (Chronic) BPH (benign prostatic hyperplasia) Depression Diabetes mellitus Hypercholesteremia Depression Onset Date: ~2000 Medical History Updates: ADHD. Seizure Surgical History: * Left cataract excision - 2014. * Colonoscopy/EGD - ~[address] Renny Vance. Reportedly normal. * Circumcision - 20 years ago Family History: Family History Father - DM Mother - DM, CVA Family History: As Above - Social History Smoking status: Former smoker Housing: house Household members: spouse Current occupational status: employed Social history: Dr Contreras PCP Medications Home Medications Medication Instructions Recorded Confirmed Type Cholecalciferol (Vitamin D3) 1,000 unit PO DAILY 05/01/18 05/01/18 History [Vitamin D3] Dapagliflozin Propanediol [Farxiga] 10 mg PO DAILY 05/01/18 05/01/18 History Dextroamphetamine/Amphetamine 20 mg PO BID 05/01/18 05/01/18 History [Adderall 20 mg Tablet] Finasteride [Proscar] 5 mg PO DAILY 05/01/18 05/01/18 History Metformin [Glucophage] 1,000 mg PO BIDWM 05/01/18 05/01/18 History Pantoprazole Sodium [Protonix] 40 mg PO QAM 05/01/18 05/01/18 History Pioglitazone HCl [Actos] 45 mg PO DAILY 05/01/18 05/01/18 History Zolpidem Tartrate [Ambien] 10 mg PO HS 05/01/18 05/01/18 History Allergies Allergy/AdvReac Type Severity Reaction Status Date / Time citalopram [From Celexa] Allergy Intermediate Inability Verified 05/01/18 12:03 to ejaculate Exam Vital Signs: Temperature 95.5 F L 05/01/18 17:30 Pulse Rate 103 H 05/01/18 17:30 Respiratory Rate 16 05/01/18 17:30 Blood Pressure 145/92 H 05/01/18 17:30 Pulse Oximetry 100 05/01/18 17:30 Telemetry Rhythm: Sinus Tachycardia Height/Weight/BMI: Height 1.78 m Weight 68.5 kg Body Mass Index 21.7 - Constitutional Present: well nourished, well developed, cooperative, somnolent - Routine HEENT Exam Head: Present: normocephalic. Absent: atraumatic (Bump to left forehead) Eye: Present: EOMI, PERRL, normal accommodation ENT: Present: mucous membranes moist - Routine Neck Exam Present: supple, full ROM, trachea midline - Routine Respiratory Exam Present: CTA bilaterally. Absent: rales, respiratory distress, rhonchi, stridor , wheezes - Routine Cardiovascular Exam Present: no murmur, tachycardia (Regular) - Routine Abdominal Exam Present: soft, normoactive bowel sounds, non distended, non tender. Absent: guarding - Routine Extremities Exam Present: pulses intact. Absent: cyanosis, clubbing - Routine Skin Exam Present: dry, warm - Routine Neurological Exam Present: alert, CN II-XII intact, altered mental status (Psychomotor slowing), moving all extremities, vision grossly intact, hearing grossly intact. Absent: motor deficit, normal speech (Soft speech, horse voice. ) - Routine Psychiatric Exam Present: cooperative. Absent: normal thought process (Slowing on mentation ), agitated Results - Labs CBC & Chem 7: 05/01/18 11:32 05/01/18 11:32 Assessment and Plan Assessment and Plan: Assessment Toxic encephalopathy of uncertain etiology With short half life of Ambien, would expect it to have cleared system by time of presentation Suspect med effect of some sort with underlying drug dependency and abuse Intentional (but without intent to harm self) overdose of Ambien Sinus tachycardia Type II DM HDL ASHA not on CPAP BPH Anxiety/Depression/PTSD Chronic insomnia Plan OBS admission to [facility] for further monitoring and treatment of encephalopathy. Tele secondary to sinus tach. Will restart Metoprol and monitor HR/BP. Can continue Ambien, but only 10mg at night and not any more. Avoid benzos. Continue home medications, but decrease Adderall to 20mg am only. IVF of 1/2NS to help maintain hydration. PT/OT eval/treat in am secondary to encephalopathy. Monitor blood sugars due to DM and medication use. SCD for DVT prevention. Full code. Care to return to Dr Contreras at time of discharge from [facility]. DVT Prophylaxis: SCD's - Physician Narrative Physician: Guzman Dupont MD Narrative: Date: 05/01/18 Time: 1835 Hospital Course Summary Disclaimer: The visit summary below is not to be considered part of the above Progress Note. Hospital Course: 05/01/18 OBS admission to [facility] for further monitoring and treatment of encephalopathy. Tele secondary to sinus tach. Will restart Metoprol and monitor HR/BP. Can continue Ambien, but only 10mg at night and not any more. Avoid benzos. Continue home medications, but decrease Adderall to 20mg am only. IVF of 1/2NS to help maintain hydration. PT/OT eval/treat in am secondary to encephalopathy. Monitor blood sugars due to DM and medication use. SCD for DVT prevention. Full code. Care to return to Dr Contreras at time of discharge from [facility].
[2018-05-02] MEDS: 1/2 NS 1,000 ML IV SCH (03:59)
[2018-05-02] MEDS ORDERED: PANTOPRAZOLE 40 MG TABLET PO SCH (06:30)
[2018-05-02] MEDS ORDERED: METFORMIN 1,000 MG TABLET PO SCH (08:00)
[2018-05-02 08:19] VITALS: BP 127/77; RESP 14; TEMP 96.4; O2SAT 99
[2018-05-02 08:39] VITALS: PULSE 109
[2018-05-02] MEDS ORDERED: PIOGLITAZONE 45 MG TABLET PO SCH (09:00)
[2018-05-02] MEDS ORDERED: DAPAGLIFLOZIN 5 MG TABLET PO SCH (09:00)
[2018-05-02] MEDS ORDERED: FINASTERIDE 5 MG TABLET PO SCH (09:00)
[2018-05-02] MEDS ORDERED: NON-FORMULARY MEDICATION 1 EACH EACH (Cholecalciferol (Vitamin D3) [Vitamin D3] 1,000 UNIT PO SCH (09:00)
[2018-05-02] MEDS ORDERED: AMPHETAMINE/DEXTROAMPHETAMINE 10 MG TABLET PO SCH (09:00)
[2018-05-02] MEDS ORDERED: DAPAGLIFLOZIN PROPANEDIOL 10 MG PO SCH (09:00)
[2018-05-02] MEDS ORDERED: PIOGLITAZONE 15 MG TABLET PO SCH (09:00)
--- NOTE | 2018-05-02 11:24 | Progress Note ---
- Date 05/02/18 Subjective: F/U: Toxic encephalopathy Doing better today. Not somnolent. Conversing well. Thoughts linear. Awake and alert. Slept fair last night-woke several times as usual. No nausea; eating well. Breathing well. Ambulating without difficulty. Wants to go home. Objective Vital signs: Temperature 96.4 F L 05/02/18 08:00 Pulse Rate 109 H 05/02/18 08:00 Respiratory Rate 14 05/02/18 08:00 Blood Pressure 127/77 05/02/18 08:00 Pulse Oximetry 99 05/02/18 08:00 Height/Weight/BMI: Height 1.78 m Weight 67.5 kg Body Mass Index 21.7 - Constitutional Present: well nourished, well developed, average body habitus, cooperative. Absent: combative, agitated, somnolent, obtunded - Routine HEENT Exam Head: Present: normocephalic Eye: Present: EOMI, PERRL ENT: Present: mucous membranes moist - Routine Respiratory Exam Present: CTA bilaterally. Absent: rales, respiratory distress, rhonchi, wheezes , crackles - Routine Cardiovascular Exam Present: no murmur, tachycardia (Regular) - Routine Abdominal Exam Present: soft, normoactive bowel sounds, non distended, non tender. Absent: guarding - Routine Extremities Exam Present: no edema, pulses intact. Absent: cyanosis, clubbing - Routine Skin Exam Present: dry, warm - Routine Neurological Exam Present: alert, oriented X3, CN II-XII intact, moving all extremities, vision grossly intact, hearing grossly intact, normal speech. Absent: motor deficit, altered mental status - Routine Psychiatric Exam Present: normal affect, cooperative. Absent: agitated Results - Labs CBC & Chem 7: 05/02/18 04:03 05/02/18 04:03 Assessment and Plan Assessment and Plan: Assessment Toxic encephalopathy of uncertain etiology With short half life of Ambien, would expect it to have cleared system by time of presentation Suspect med effect of some sort with underlying drug dependency and abuse Intentional (but without intent to harm self) overdose of Ambien Sinus tachycardia Type II DM HDL ASHA not on CPAP BPH Anxiety/Depression/PTSD Chronic insomnia Plan Encephalopathy revolved. Thoughts clear. Ambulating well. Will discharge to home. May continue chronic home medications. Advised patient AGAINST using more than 10mg of Ambien at night. Stressed importance of outpatient psychiatric follow up. Will continue with metoprolol 25mg BIDWM. Will follow up with Dr Contreras on 05/06/18 as previously scheduled. F/U with Dr Gonzalez at [place] in 2 weeks for psych care. See orders for details. Case discussed with CM. Time spent with patient care and discharge greater than 30 minutes. DVT Prophylaxis: SCD's GI Prophylaxis: Protonix Resuscitation Status: Full Code - Physician Narrative Physician: Guzman Dupont MD Narrative: Date: 05/02/18 Time: 1117 Hospital Course Summary Disclaimer: The visit summary below is not to be considered part of the above Progress Note. Hospital Course: 05/01/18 OBS admission to [facility] for further monitoring and treatment of encephalopathy. Tele secondary to sinus tach. Will restart Metoprol and monitor HR/BP. Can continue Ambien, but only 10mg at night and not any more. Avoid benzos. Continue home medications, but decrease Adderall to 20mg am only. IVF of 1/2NS to help maintain hydration. PT/OT eval/treat in am secondary to encephalopathy. Monitor blood sugars due to DM and medication use. SCD for DVT prevention. Full code. Care to return to Dr Contreras at time of discharge from [facility]. 05/02/18 Encephalopathy revolved. Thoughts clear. Ambulating well. Will discharge to home. May continue chronic home medications. Advised patient AGAINST using more than 10mg of Ambien at night. Stressed importance of outpatient psychiatric follow up. Will continue with metoprolol 25mg BIDWM. Will follow up with Dr Contreras on 05/06/18 as previously scheduled. F/U with Dr Gonzalez at [place] in 2 weeks for psych care. See orders for details.
--- NOTE | 2018-05-02 11:36 | Discharge Summary ---
Discharge Information Date of admission: 05/01/18 16:24 Anticipated date of discharge: 05/02/18 Attending Physician: Guzman Dupont MD Primary care physician: Michael Contreras MD Consults: PT/OT Discharge diagnosis Toxic encephalopathy of uncertain etiology - resolved With short half life of Ambien, would expect it to have cleared system by time of presentation Suspect med effect of some sort with underlying drug dependency and abuse Associated conditions and complications Intentional (but without intent to harm self) overdose of Ambien Unwitnessed fall with closed head injury Hematoma to left forehead Sinus tachycardia Type II DM HDL ASHA not on CPAP BPH Anxiety/Depression/PTSD Chronic insomnia - Laboratory Labs: Admit Lab 05/01/18 11:32 WBC 9.9 Hgb 14.1 Hct 42.5 MCV 91.8 Plt Count 257 D Neut % (Auto) 64.9 Lymph % (Auto) 23.1 [place] % (Auto) 8.9 Eos % (Auto) 2.1 Baso % (Auto) 0.2 Admit Lab 05/01/18 11:32 Sodium 144 Potassium 4.3 Chloride 101 Carbon Dioxide 28 Anion Gap 15 BUN 15.0 Creatinine 0.7 L GFR Calculation 115 BUN/Creatinine Ratio 21 Glucose 159 H Calculated Osmolality 281 H Calcium 9.8 Total Bilirubin 0.70 AST 27 ALT 23 Alkaline Phosphatase 92 Total Protein 7.9 Albumin 4.7 Globulin 3.2 Albumin/Globulin Ratio 1.5 05/02/18 04:03 05/02/18 04:03 - Radiology Radiology: Date of Exam: 05/01/18 Type of Exam: CT head/brain wo con FINDINGS: The ventricles are of normal size, shape, and configuration for the patient's age. There is no evidence of acute intracranial hemorrhage, midline displacement, or mass effect. There are scattered areas of low attenuation in the white matter which most likely represent changes of chronic microvascular ischemia. The CT attenuation of the brain parenchyma is otherwise normal within the cerebellum, brain stem, and cerebral hemispheres. The tympanic cavities and mastoid air cells are free of appreciable disease. There are no definite fractures of the skull base, calvarium, or visualized portion of the midface. Mild left frontal scalp swelling. IMPRESSION: No CT evidence of acute traumatic intracranial injury. History of Present Illness HPI: Mr Hansen is a 58 y/o male who presents to [facility] [place] secondary to suspected overdose and encephalopathy. He reports he was not able to sleep last night despite 20mg of Ambien - took and extra 10mg to help sleep. Will take 20mg Ambien to help sleep, so he did not think too much about taking the extra 10mg. His call to check on him this morning. Apparently he was more slow to respond so she had neighbors come check on him. When they checked at about 0945, he was sitting on chair and slow to respond. Recheck later and he was about the same. When they checked at around 1100, he was laying on floor. EMS activated. Given 2mg IV flumazenil and became more alert. Recently hospitalized at [facility] from 03/29/18 until 04/02/18 secondary to Toxic Encephalopathy thought to be secondary to synthetic cannabinoid use and sleep deprivation. Was discharged on Metoprolol 25mg BIDWM (which patient reports to me he did not start as leery of the medication) and Trazodone, Adderall, Triazolam and Xanax stopped. Was seen in clinic on 04/09 and having difficulty sleeping - OTC Melatonin started but not effective. Called to clinic 04/16 expressing sleep problems wanting to go back on Xanax, Adderall, and triazolam as prior to his admission. PCP not available and staff did attempt to contact psychiatry; patient reported he canceled his psych appointment as he did not feel it would help him. Patient did start taking Ambien that he had prior to admission (not listed on Med Rec at admission or with PCP's prior visits). When seen in clinic 04/22/18, reports having restarted Adderall (as he could not concentrate or function); was given refill Ambien at that time. Denies any synthetic cannabinol use (or other drugs/ ETOH) since discharge. Evaluated in ED. Lab unremarkable. CT head negative for acute bleed. With continued somnolence and encephalopathy, patient placed in OBS for further evaluation. For complete details of the H&P refer to that document. Objective Vital signs: Temperature 96.4 F L 05/02/18 08:00 Pulse Rate 109 H 05/02/18 08:00 Respiratory Rate 14 05/02/18 08:00 Blood Pressure 127/77 05/02/18 08:00 Pulse Oximetry 99 05/02/18 08:00 Height/Weight/BMI: Height 1.78 m Weight 67.5 kg Body Mass Index 21.7 Hospital Course This is a general summary of the patient's hospital course. For more details refer to the complete medical record. Hospital course: 05/01/18 OBS admission to [facility] for further monitoring and treatment of encephalopathy. Tele secondary to sinus tach. Will restart Metoprol and monitor HR/BP. Can continue Ambien, but only 10mg at night and not any more. Avoid benzos. Continue home medications, but decrease Adderall to 20mg am only. IVF of 1/2NS to help maintain hydration. PT/OT eval/treat in am secondary to encephalopathy. Monitor blood sugars due to DM and medication use. SCD for DVT prevention. Full code. Care to return to Dr Contreras at time of discharge from [facility]. 05/02/18 Encephalopathy revolved. Thoughts clear. Ambulating well. Will discharge to home. May continue chronic home medications. Advised patient AGAINST using more than 10mg of Ambien at night. Stressed importance of outpatient psychiatric follow up. Will continue with metoprolol 25mg BIDWM. Will follow up with Dr Contreras on 05/06/18 as previously scheduled. F/U with Dr Gonzalez at [place] in 2 weeks for psych care. See orders for details. Time spent with patient: discharge greater than 30 minutes Resuscitation Status: Full Code Discharge Plan - Discharge Disposition Discharge Date: 05/02/18 Disposition: 01 Discharged Home, Self-Care *Condition: Stable Reason For Visit (Visit label in EMR): Encephalopathy falls - Discharge Medications *Discharge Medications: New RX: Metoprolol Tartrate [Lopressor] 25 mg PO BIDWM #60 tab Continue RX: Zolpidem Tartrate [Ambien] 10 mg PO HS RX: Metformin [Glucophage] 1,000 mg PO BIDWM RX: Finasteride [Proscar] 5 mg PO DAILY RX: Pioglitazone HCl [Actos] 45 mg PO DAILY RX: Pantoprazole Sodium [Protonix] 40 mg PO QAM RX: Cholecalciferol (Vitamin D3) [Vitamin D3] 1,000 unit PO DAILY RX: Dextroamphetamine/Amphetamine [Adderall 20 mg Tablet] 20 mg PO BID RX: Dapagliflozin Propanediol [Farxiga] 10 mg PO DAILY - Discharge Packet/Instructions *Diet: 2000 KCAL ADA *Activity: As tolerated *Pain Management/Treatment: Continue prior home pain medications *Wound Care: N/A Additional Instructions: Do not use more that 10mg of Ambien at night. *Expected Signs/Symptoms: Improvement of mental clarity if take medications as prescribed. *Notify Physician if: Temp >100.4. Feeling dizzy/unsteady with positional changes. Tachycardia, chest pressure, difficulty breathing or any worrrisome symptom. *During Business Hours Contact: Dr Contreras. *After Business Hours Contact: Call [facility] and have your care provider or covering provider contacted. *Pending Lab/Results: No Pending Lab - Referrals/Follow Up *Referrals/Follow Up: Adarsh Gonzalez DO [Physician] - 2 Weeks (Pyschiatric follow up. ) Michael Contreras MD [Primary Care Provider] - (Keep previously scheduled appointment on 05/06/18) - Patient Handouts Patient Handouts: Encephalopathy (GEN) - Dismissal Complete Discharge Instructions are:: Complete Physician Narrative - Narrative Physician: Guzman Dupont MD Attestation Narrative: Date: 05/02/18 Time: 1132 I have independently interviewed and examined patient prior to discharge. See my progress not for details. Medically stable for discharge to home.
--- NOTE | 2018-05-02 12:13 | Work/School Release ---
Work/School Release - Date Date: 05/02/18 - Work Release Remain off work/school for:: Mr Hansen was hospitalized at [facility] from 05/01/18 until . He may return to work on Sunday05/03/18.
== END 2018-05-02 12:15 | disposition home or self-care (01) ==
LOC: ED 11:45 → EDHOLD 11:45 → MED 17:13
PROVIDERS: ADMIT Hospitalist; ATTEND Hospitalist